=== PATIENT | male | born 1975 | race Caucasian/White ===

== ENCOUNTER 2018-12-23 16:57 | Emergency (ER) | payer BC ==
[~2018-12-23] VITALS: Ht 165.1 cm; Wt 86.4 kg
[2018-12-23 17:01] VITALS: Ht 165.1 cm; Wt 86.4 kg
[2018-12-23] MEDS ORDERED: CEFTRIAXONE 250 MG INJ IM ONE (18:30)
[2018-12-23] MEDS ORDERED: AZITHROMYCIN 500 MG TAB PO ONE (18:30)
[2018-12-23] MEDS ORDERED: IBUP-1542 PO (20:23)
[2018-12-23] MEDS ORDERED: CIPR500T4 PO (20:23)
[2018-12-23 20:27] VITALS: BP 150/90; PULSE 62; RESP 17
--- NOTE | 2018-12-23 20:27 | ERD ---
ER Documentation Chief Complaint Chief Complaint Left testicle pain swelling x 1 week; non-traumatic, possible STD HPI 43-year-old male presents with left-sided testicular swelling for the last week. He has pain. He denies any known inciting events except for possibly wearing some tight pants. He did receive a call from a sexual partner stating that she was diagnosed with chlamydia in the last few weeks. Denies any penile discharge, dysuria, fevers, vomiting. ROS All systems reviewed and are negative except as per history of present illness. Medications Home Meds Active Scripts Ibuprofen* (Motrin*) 600 Mg Tab, 600 MG PO Q6, #20 TAB Prov:ARMANDO MARTIN MD 12/23/18 Ciprofloxacin Hcl* (Ciprofloxacin Hcl*) 500 Mg Tablet, 500 MG PO BID for 10 Days, TAB Prov:ARMANDO MARTIN MD 12/23/18 Allergies Allergies: Coded Allergies: No Known Allergy (Unverified , 12/23/18) PMhx/Soc Medical and Surgical Hx: pt denies Medical Hx, pt denies Surgical Hx Hx Alcohol Use: No Hx Substance Use: No Hx Tobacco Use: No Smoking Status: Never smoker FmHx Family History: No diabetes, No coronary disease, No other Physical Exam Vitals Vital Signs Date Temp Pulse Resp B/P (MAP) Pulse Ox O2 O2 Flow FiO2 Time Delivery Rate 12/23/18 98.5 72 18 174/99 98 17:01 (124) Physical Exam Const: No acute distress Head: Atraumatic Eyes: Normal Conjunctiva ENT: Normal External Ears, Nose and Mouth. Neck: Full range of motion. No meningismus. Resp: Clear to auscultation bilaterally Cardio: Regular rate and rhythm, no murmurs Abd: Soft, non tender, non distended. Normal bowel sounds. General exam shows some swelling and tenderness around the left testicle and supratesticular area. No erythema or induration of the scrotum. No penile discharge or external lesions appreciated. Testicles are descended bilaterally. Skin: No petechiae or rashes Back: No midline or flank tenderness Ext: No cyanosis, or edema Neur: Awake and alert Psych: Normal Mood and Affect Results 24 hrs Laboratory Tests Test 12/23/18 20:05 Urine Color YELLOW Urine Clarity CLEAR Urine pH 6.0 Urine Specific [place] 1.019 Urine Ketones NEGATIVE mg/dL Urine Nitrite NEGATIVE mg/dL Urine Bilirubin NEGATIVE mg/dL Urine Urobilinogen NEGATIVE mg/dL Urine Leukocyte Esterase NEGATIVE Samira/ul Urine Hemoglobin NEGATIVE mg/dL Urine Glucose NEGATIVE mg/dL Urine Total Protein NEGATIVE mg/dl Current Medications Medications Dose Sig/Elizabeth Start Time Status Last (Trade) Ordered Route PRN Stop Time Admin Dose Reason Admin 1,000 mg ONCE ONCE 12/23/18 DC 12/23/18 Azithromycin PO 18:30 12/23/18 18:53 (Zithromax) 18:31 Ceftriaxone 250 mg ONCE ONCE 12/23/18 DC 12/23/18 Sodium IM 18:30 12/23/18 18:53 (Rocephin) 18:31 Procedures/MDM Scrotal ultrasound shows left-sided epididymal head cyst as well as findings consistent with epididymitis but there is no findings of torsion, additional acute abnormalities. Urine is negative but sent for culture. Urine was sent for gonorrhea chlamydia. Patient was given Rocephin 250 mg IM, Zithromax 1 g by mouth all treated with Cipro and ibuprofen for findings of peer to be epididymitis as well. He is advised to follow-up with primary doctor and urology for persistent symptoms seek. He should return to ER for worsening pain, swelling, new worsening symptoms. The patient was stable with no new complaints during the ER course. Clinically, there is no current evidence to suggest meningitis, sepsis, acute abdomen, pneumonia, stroke, acute coronary syndrome, pulmonary embolism, aortic dissection or any other emergent condition appearing to require further evaluation or hospitalization. Patient counseled regarding my diagnostic impression and care plan. Prior to discharge all questions answered. Pt agrees with treatment plan and understands strict return precautions. Pt is instructed to follow up with primary care provider within 24- 48 hours. Precautionary instructions provided including instructions to return to the ER if not improving or for any worsening or changing symptoms or concerns. Disclaimer: Inadvertent spelling and grammatical errors are likely due to EHR/dictation software use and do not reflect on the overall quality of patient care. Also, please note that the electronic time recorded on this note does not necessarily reflect the actual time of the patient encounter. Departure Diagnosis: Primary Impression: Epididymitis Condition: Stable Patient Instructions: Epididymitis Referrals: CR PALMER MD Additional Instructions: Ultrasound shows epididymitis is infection of the tubes around the testicles. You have been treated for STDs. See primary doctor and urology for follow-up for persistent symptoms. Recheck for worsening pain, swelling, new or worsening symptoms. ARMANDO MARTIN MD Dec 23, 2018 20:27
== END 2018-12-23 20:28 | disposition home or self-care (01) ==
LOC: FTE 16:57
DX: N45.1 Epididymitis (principal)
CPT/HCPCS: 76870; 81003; 87591; 96372; 99285; J0696; Z7610